=== PATIENT | male | born 1965 | race Caucasian/White ===

== ENCOUNTER → 2018-09-05 20:39 | Emergency (ER) | payer BC, OTHER ==
[~2018-09-05 20:39] MED LIST: Ibuprofen TAB* 600 MG PO ONE
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
[2018-09-05 23:13] VITALS: BP 145/86
== END | disposition home or self-care (01) ==
LOC: ED 20:39
DX: S82.302A Unspecified fracture of lower end of left tibia, initial encounter for closed fracture (principal); W20.8XXA Other cause of strike by thrown, projected or falling object, initial encounter; Y92.9 Unspecified place or not applicable; R60.0 Localized edema; Z87.891 Personal history of nicotine dependence
CPT/HCPCS: 99282; A9270-GY

== ENCOUNTER → 2018-09-16 11:56 | Day surgery (SDC) | payer OTHER ==
[~2018-09-16 11:56] MED LIST changes: +Buffered Lidocaine 0.9% SYRIN* 5 ML/SYR SYRINGE INTRADERM ONE; +Buffered Lidocaine 0.9% SYRIN* 5 ML/SYR SYRINGE ONE; +Bupivacaine 0.25% SDV PF* 10 ML VIAL INJ ONE; +Dexamethasone IV* 4 MG/ML 1 ML (4 MG) ONE; +Famotidine IV* 10 MG/ML 2 ML (20 mg) IV ONE; +Famotidine IV* 10 MG/ML 2 ML (20 mg) ONE; +HYDROmorphone INJ1* 1 MG/ML SYRINGE IV PRN; -Ibuprofen TAB* 600 MG PO ONE; +KETAMINE HCL* 50 MG/ML 10 ML VIAL ONE; +Ketorolac INJ* 30 MG/ML 1 ML VIAL ONE; +Lidocaine 2% PF * 5 ML VIAL ONE; +Midazolam* 1 MG/ML 5 ML VIAL (5 MG) ONE; +Naloxone* 0.4 MG/ML 1 ML VIAL IV PRN; +Ondansetron INJ* 2 MG/ML VIAL IV PRN; +Ondansetron INJ* 2 MG/ML VIAL ONE; +Propofol* 10 MG/ML 20 ML BTL ONE; +ceFAZolin 2 GM PREMIX in ORs 2 GM/50 ML BAG IVPB ONE; +fentaNYL* 50 MCG/ML 2 ML VIAL (100 MCG VIAL) ONE; +oxyCODONE/Acetamin 5/325 MG* TAB ONE
[2018-09-16] MEDS: fentaNYL* 50 MCG/ML 2 ML VIAL (100 MCG VIAL) IV PRN ×2 (16:08→16:19)
[2018-09-16] MEDS: oxyCODONE/Acetamin 5/325 MG* TAB PO PRN ×2 (16:09→16:10)
[2018-09-16 17:03] VITALS: BP 125/85
--- NOTE | 2018-09-17 15:42 | OP ---
DATE OF OPERATION: 09/16/18 - [facility] DATE OF : 61 SURGEON: Willard Reaves MD FELT PULLER: Xiao Calloway PA-C PRE-OP DIAGNOSIS: Displaced medial malleolus fracture. POST-OP DIAGNOSIS: Displaced medial malleolus fracture. OPERATIVE PROCEDURE: Internal fixation, left medial malleolus. DESCRIPTION OF PROCEDURE: The patient was taken to the operating room where a 4 -cm longitudinal incision was made over the medial malleolus. We cleaned out the hematoma from the fracture site itself and reducing this anatomically with a pointed reduction clamp. Guide pins were then placed with 4-0 cannulated screws, each placed over a washer with good compression and fixation obtained. X-ray AP of the ankle showed no shift of the mortise and good fixation alignment of the medial malleolus. We then irrigated thoroughly, closing the capsule with a 2-0 Vicryl suture, subcu 2-0 Vicryl, avinash for the skin, and a compression dressing plaster splint applied. [id number]/[facility] #: [id number] [facility]ENTER[facility]
== END | disposition home or self-care (01) ==
LOC: OR 11:56
PROVIDERS: ATTEND Orthopaedic Surgery
DX: S82.52XA Displaced fracture of medial malleolus of left tibia, initial encounter for closed fracture (principal); V09.20XA Pedestrian injured in traffic accident involving unspecified motor vehicles, initial encounter; Y92.410 Unspecified street and highway as the place of occurrence of the external cause; Z87.891 Personal history of nicotine dependence; E78.00 Pure hypercholesterolemia, unspecified
CPT/HCPCS: 76001; A9270-GY; C1713; J0690; J1100; J1885; J2250; J2405; J2704; J3010; J3490

== ENCOUNTER → 2019-02-21 12:20 | Day surgery (SDC) | payer OTHER ==
[~2019-02-21 12:20] MED LIST changes: -Buffered Lidocaine 0.9% SYRIN* 5 ML/SYR SYRINGE INTRADERM ONE; -Buffered Lidocaine 0.9% SYRIN* 5 ML/SYR SYRINGE ONE; +Buffered Lidocaine 1% SYRIN* 1 ML/SYRINGE INTRADERM ONE; -Bupivacaine 0.25% SDV PF* 10 ML VIAL INJ ONE; +Bupivacaine 0.5% W/EPI SDV* 30 ML VIAL ONE; +Dexamethasone IV* 4 MG/ML 1 ML (4 MG) IV SLOW PU ONE; +DiMENhydriNATE IV* 50 MG/ML VIAL IV PUSH PRN; +EPINEPHRINE 1 MG/ML 1 ML VIAL ONE; -Famotidine IV* 10 MG/ML 2 ML (20 mg) IV ONE; -Famotidine IV* 10 MG/ML 2 ML (20 mg) ONE; +Glycopyrrolate IV* 0.2 MG/ML 1 ML VIAL ONE; -KETAMINE HCL* 50 MG/ML 10 ML VIAL ONE; +Lactated Ringers 1000 ML Bag* 1,000 ML IV SCH; +fentaNYL* 50 MCG/ML 2 ML VIAL (100 MCG VIAL) IV PRN; +fentaNYL* 50 MCG/ML 5 ML VIAL (250 MCG VIAL) ONE; +oxyCODONE/Acetamin 5/325 MG* TAB PO PRN
[2019-02-21 16:54] VITALS: BP 100/63
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
== END | disposition home or self-care (01) ==
LOC: OR 12:20
PROVIDERS: ATTEND Orthopaedic Surgery
DX: S83.242A Other tear of medial meniscus, current injury, left knee, initial encounter (principal); V03.10XA Pedestrian on foot injured in collision with car, pick-up truck or van in traffic accident, initial encounter; Y92.410 Unspecified street and highway as the place of occurrence of the external cause; G90.522 Complex regional pain syndrome I of left lower limb; Z87.891 Personal history of nicotine dependence
CPT/HCPCS: A9270-GY; J0690; J1100; J1885; J2250; J2405; J2704; J3010

== ENCOUNTER → 2019-09-08 07:11 | Day surgery (SDC) | payer OTHER ==
[~2019-09-08 07:11] MED LIST changes: +Acetaminophen IV 1GM/100ML * 1,000 MG/100 ML VIAL IVPB ONE; -Bupivacaine 0.5% W/EPI SDV* 30 ML VIAL ONE; +Bupivacaine 0.5%* 50 ML MDV VIAL ONE; -Dexamethasone IV* 4 MG/ML 1 ML (4 MG) IV SLOW PU ONE; -Dexamethasone IV* 4 MG/ML 1 ML (4 MG) ONE; -DiMENhydriNATE IV* 50 MG/ML VIAL IV PUSH PRN; -EPINEPHRINE 1 MG/ML 1 ML VIAL ONE; -Glycopyrrolate IV* 0.2 MG/ML 1 ML VIAL ONE; -HYDROmorphone INJ1* 1 MG/ML SYRINGE IV PRN; -Ketorolac INJ* 30 MG/ML 1 ML VIAL ONE; -Midazolam* 1 MG/ML 5 ML VIAL (5 MG) ONE; -Ondansetron INJ* 2 MG/ML VIAL ONE; +Sodium Citrate/Citric Acid* 15 ML UDC ONE; +Sodium Citrate/Citric Acid* 15 ML UDC PO ONE; -ceFAZolin 2 GM PREMIX in ORs 2 GM/50 ML BAG IVPB ONE; +ceFAZolin 2 GM in NS PREMIX(*) 2 GM/100 ML BAG IVPB ONE; -fentaNYL* 50 MCG/ML 5 ML VIAL (250 MCG VIAL) ONE; -oxyCODONE/Acetamin 5/325 MG* TAB ONE; -oxyCODONE/Acetamin 5/325 MG* TAB PO PRN
[2019-09-08 09:53] VITALS: BP 103/63
--- NOTE | 2019-09-08 16:08 | OP ---
DATE OF OPERATION: 09/08/19 - [facility] DATE OF : 61 SURGEON: Willard Reaves MD SENIOR RECEPTIONIST: Christian Valdes PA-C PRE-OP DIAGNOSIS: Painful retained hardware, medial malleolus fracture. POST-OP DIAGNOSIS: Painful retained hardware, medial malleolus fracture. OPERATIVE PROCEDURE: Removal of hardware, left medial ankle. DESCRIPTION OF PROCEDURE: The patient was taken to the operating room where some general anesthesia was obtained. We opened up 3 cm longitudinally at the medial malleolus, isolating the heads of the two paired cannulated screws. Each was removed with appropriate star torque screwdriver head as well as the washers. We then irrigated thoroughly, closing the dorsal split in the deltoid with a 2-0 Vicryl deep suture, 3-0 Monocryl for subcu, and avinash for the skin. Compression dressing applied. [id number]/[facility] #: [id number] MTDD
== END | disposition home or self-care (01) ==
LOC: OR 07:11
PROVIDERS: ATTEND Orthopaedic Surgery
PROC: 0SPG04Z Removal of Internal Fixation Device from Left Ankle Joint, Open Approach (ICD-10-PCS; principal; 2019-09-08 08:45)
DX: T84.84XA Pain due to internal orthopedic prosthetic devices, implants and grafts, initial encounter (principal); E78.00 Pure hypercholesterolemia, unspecified; Z87.891 Personal history of nicotine dependence; Z79.1 Long term (current) use of non-steroidal anti-inflammatories (NSAID)
CPT/HCPCS: 88300; A9270-GY; J0690; J2704; J3010; J3490